=== PATIENT | female | born 2000 | race Caucasian/White ===

== ENCOUNTER 2025-06-11 08:46 | Day surgery (SDC) | payer OTHER ==
[~2025-06-11 08:46] MED LIST: Ferumoxytol (ERSD) 510 MG in 0.9 % Sodium Chloride 150 ML IVPB SCH
[2025-06-11] MEDS: Acetaminophen 500 MG TAB PO SCH (09:08)
[2025-06-11] MEDS ORDERED: Acetaminophen 500 MG TAB ONE (09:08)
[2025-06-11] MEDS: Ferumoxytol (NON ERSD) 510 MG in 0.9 % Sodium Chloride 150 ML IVPB SCH (09:51)
[2025-06-11 16:03] VITALS: BP 96/53; TEMP 98.3
== END 2025-06-11 16:03 | disposition home or self-care (01) ==
LOC: ONC/OP 08:46
PROVIDERS: ATTEND Family Medicine
DX: O99.013 Anemia complicating pregnancy, third trimester (principal); O24.419 Gestational diabetes mellitus in pregnancy, unspecified control; O34.211 Maternal care for low transverse scar from previous cesarean delivery; O99.613 Diseases of the digestive system complicating pregnancy, third trimester; K90.9 Intestinal malabsorption, unspecified; O99.891 Other specified diseases and conditions complicating pregnancy; R25.2 Cramp and spasm; Z3A.33 33 weeks gestation of pregnancy; Z79.899 Other long term (current) drug therapy
CPT/HCPCS: 96365; 96366; Q0138; Q0139